=== PATIENT | female | born 1990 | race Caucasian/White ===

== ENCOUNTER 2018-05-26 11:17 | Emergency (ER) | payer OTHER ==
[2018-05-26 12:22] LABS: BASO % 0.2 % (0.0-1.0); EOS # 0.1 10^3/uL (0.0-0.50); EOS % 0.7 % (0.0-3.0); HEMATOCRIT 34.3 % (36.0-47.0); HEMOGLOBIN 12.2 g/dl (12.0-15.5); IMMATURE GRANULOCYTE % 0.5 % (0-3.0); LYMPH # 1.9 10^3/uL (1.5-6.5); LYMPH % 11.9 % (24.0-44.0); MEAN CORPUSCULAR HEMOGLOBIN 31.8 pg (27.0-33.0); MEAN CORPUSCULAR HGB CONC 35.6 g/dl (32.0-36.5); MEAN CORPUSCULAR VOLUME 89.3 fl (80.0-96.0); MONO # 0.9 10^3/uL (0.0-0.8); MONO % 5.5 % (0.0-5.0); NEUTROPHILS # 12.8 10^3/uL (1.8-7.7); NEUTROPHILS % 81.2 % (36.0-66.0); PLATELET COUNT, AUTOMATED 173 10^3/uL (150-450); RED BLOOD COUNT 3.84 10^6/uL (4.00-5.40); RED CELL DISTRIBUTION WIDTH 13.1 % (11.5-14.5); WHITE BLOOD COUNT 15.7 10^3/uL (4.0-10.0)
[2018-05-26 12:48] LABS: LACTIC ACID SEPSIS PROTOCOL 0.5 MMOL/L (0.4-2.0)
[2018-05-26 12:51] LABS: ALBUMIN 3.1 GM/DL (3.2-5.2); ALBUMIN/GLOBULIN RATIO 0.94 (1.00-1.93); ALKALINE PHOSPHATASE 57 U/L (45-117); ALT/SGPT 10 U/L (12-78); ANION GAP 9 MEQ/L (8-16); AST/SGOT 9 U/L (7-37); BILIRUBIN,DIRECT < 0.1 MG/DL (0.0-0.2); BILIRUBIN,TOTAL 0.1 MG/DL (0.2-1.0); BLOOD UREA NITROGEN 7 MG/DL (7-18); C REACTIVE PROTEIN QUANTITATIV 4.65 MG/DL (0.00-0.30); CALCIUM LEVEL 8.2 MG/DL (8.5-10.1); CARBON DIOXIDE LEVEL 23 MEQ/L (21-32); CHLORIDE LEVEL 106 MEQ/L (98-107); CREATININE FOR GFR 0.46 MG/DL (0.55-1.30); GLOMERULAR FILTRATION RATE > 60.0 (>60); GLUCOSE, FASTING 65 MG/DL (70-100); POTASSIUM SERUM 3.8 MEQ/L (3.5-5.1); SODIUM LEVEL 138 MEQ/L (136-145); TOTAL PROTEIN 6.4 GM/DL (6.4-8.2)
[2018-05-26] MEDS: MORPHINE 4 MG/ML 1ML VIAL/SYRINGE (J2270) IV (12:55)
[2018-05-26 13:00] LABS: ERYTHROCYTE SEDIMENTATION RATE 26 mm/hr (0-20)
[2018-05-26] MEDS ORDERED: ISOVUE-370 76% 100ML VIAL (Q9967) As Ordered (13:50)
[2018-05-26] MEDS: CLINDAMYCIN 600 MG in APPROPRIATE DILUENT 1 EA IV (14:30)
== END 2018-05-26 15:30 | disposition home or self-care (01) ==
LOC: M ED 11:17
DX: O99.89 Other specified diseases and conditions complicating pregnancy, childbirth and the puerperium (principal); J34.1 Cyst and mucocele of nose and nasal sinus; Z3A.20 20 weeks gestation of pregnancy
CPT/HCPCS: J2270

== ENCOUNTER 2018-05-29 06:37 | Emergency (ER) | payer OTHER ==
[2018-05-29] MEDS: NS 1,000 ML IV (07:43)
[2018-05-29] MEDS: MORPHINE 2 MG/ML 1ML SYRINGE (J2270) IV ×2 (07:46→08:36)
[2018-05-29 07:57] LABS: HEMATOCRIT 35.5 % (36.0-47.0); HEMOGLOBIN 12.4 g/dl (12.0-15.5); MEAN CORPUSCULAR HEMOGLOBIN 31.4 pg (27.0-33.0); MEAN CORPUSCULAR HGB CONC 34.9 g/dl (32.0-36.5); MEAN CORPUSCULAR VOLUME 89.9 fl (80.0-96.0); PLATELET COUNT, AUTOMATED 190 10^3/uL (150-450); RED BLOOD COUNT 3.95 10^6/uL (4.00-5.40); RED CELL DISTRIBUTION WIDTH 12.7 % (11.5-14.5); WHITE BLOOD COUNT 11.8 10^3/uL (4.0-10.0)
[2018-05-29 08:16] LABS: ANION GAP 8 MEQ/L (8-16); BLOOD UREA NITROGEN 6 MG/DL (7-18); CALCIUM LEVEL 8.9 MG/DL (8.5-10.1); CARBON DIOXIDE LEVEL 23 MEQ/L (21-32); CHLORIDE LEVEL 105 MEQ/L (98-107); GLOMERULAR FILTRATION RATE > 60.0 (>60); GLUCOSE, FASTING 85 MG/DL (70-100); SODIUM LEVEL 136 MEQ/L (136-145)
[2018-05-29 08:19] LABS: LACTIC ACID SEPSIS PROTOCOL 0.5 MMOL/L (0.4-2.0)
[2018-05-29] MEDS: METOCLOPRAMIDE INJ 10MG/2ML VIAL (J2765) IV (08:25)
== END 2018-05-29 09:07 | disposition home or self-care (01) ==
LOC: M ED 06:37
DX: O99.89 Other specified diseases and conditions complicating pregnancy, childbirth and the puerperium (principal); K08.89 Other specified disorders of teeth and supporting structures; J34.1 Cyst and mucocele of nose and nasal sinus; Z3A.21 21 weeks gestation of pregnancy
CPT/HCPCS: J2765

== ENCOUNTER → 2018-06-06 | Outpatient (CLI) | payer OTHER ==
[~2018-06-06] MED LIST: ACET325T; AMOX500T2; CLINDAMYCIN; ONDA4TAB5; OXYCODONE-ACET; PERC5TAB12 PO
[2018-06-06 18:51] LABS: RUBELLA IgG QUALITATIVE IMMUNE (IMMUNE)
[2018-06-06 21:31] LABS: CHLAMYDIA DNA AMPLIFICATION NEGATIVE (NEGATIVE); GC DNA AMPLIFICATION NEGATIVE (NEGATIVE)
== END ==
LOC: M SMT 13:59
PROVIDERS: ATTEND Specialist
DX: Z36.89 Encounter for other specified antenatal screening (principal)

== ENCOUNTER 2018-08-16 19:23 | Outpatient (CLI) | payer OTHER ==
[~2018-08-16] VITALS: Ht 154.9 cm; Wt 87.7 kg
[2018-08-16 19:46] VITALS: BP 130/78
[2018-08-16] MEDS ORDERED: PRENTAB9 PO (20:22)
[2018-08-16] MEDS ORDERED: MAPA500T2 PO (20:22)
[2018-08-16] MEDS ORDERED: PERCOCET 5MG/325MG TAB PO ONE (21:00)
[2018-08-16] MEDS ORDERED: ONDANSETRON 4 MG TAB (S0181) PO ONE (21:00)
[2018-08-16 21:26] LABS: AMPHETAMINES URINE REFLEX NEGATIVE (NEGATIVE); BARBITURATES URINE REFLEX NEGATIVE (NEGATIVE); BENZODIAZEPINES URINE REFLEX NEGATIVE (NEGATIVE); CANNABINOIDS URINE REFLEX NEGATIVE (NEGATIVE); COCAINE METABOLITE URINE REFLE NEGATIVE (NEGATIVE); METHADONE URINE REFLEX NEGATIVE (NEGATIVE); OPIATES URINE REFLEX NEGATIVE (NEGATIVE); PHENCYCLIDINE URINE REFLEX NEGATIVE (NEGATIVE)
--- NOTE | 2018-08-17 03:09 | NUR ---
L&D Triage Note 27yo . 32+3 weeks EGA. Receives PN care in [place]. Presents with chief complaint of dental pain. Scheduled to see dentist tomorrow morning. States dentist will not prescribe pain medication. Tylenol has been ineffective. Pain is causing n/v. Pt also complains of diarrhea. VSS, normotensive, afebrile Abd: soft,nt,nd Ext: no c/c/e HEENT: no e/o dental/oral abscess. No neck edema/induration. EFM: Reactive, moderate variability, no decels. [place]: no ctxs A/P: 27yo at 32+3 weeks. Dental pain. -Zofran and Percocet ordered -Limited Rx for Percocet entered. -Pt advised to keep dental appointment. Deandra Constantino DO
[2018-08-17] MEDS ORDERED: PERCOCET PO (03:10)
== END 2018-08-16 21:39 | disposition home or self-care (01) ==
LOC: M LDO 19:23
PROVIDERS: ATTEND Obstetrics & Gynecology
DX: O99.63 Diseases of the digestive system complicating the puerperium (principal); K08.89 Other specified disorders of teeth and supporting structures; O21.2 Late vomiting of pregnancy; Z3A.32 32 weeks gestation of pregnancy

== ENCOUNTER → 2018-10-10 | Outpatient (REF) | payer OTHER ==
[~2018-10-10] MED LIST changes: +MAPA500T2 PO; +PERCOCET PO; +PRENTAB9 PO
== END ==
LOC: M LAB LCGH 11:08
PROVIDERS: ATTEND Family Medicine
DX: Z39.2 Encounter for routine postpartum follow-up (principal)

== ENCOUNTER 2019-12-24 09:54 | Emergency (ER) | payer OTHER ==
[~2019-12-24] VITALS: Ht 154.9 cm; Wt 76.1 kg
[~2019-12-24 09:54] MED LIST changes: +ONDA-83; -ONDA4TAB5
[2019-12-24 10:27] LABS: BASO % 0.5 % (0.0-1.0); EOS # 0.2 10^3/uL (0.0-0.5); EOS % 3.4 % (0.0-3.0); HEMATOCRIT 40.6 % (36.0-47.0); HEMOGLOBIN 13.8 g/dl (12.0-15.5); LYMPH # 1.3 10^3/uL (1.5-5.0); LYMPH % 21.8 % (24.0-44.0); MEAN CORPUSCULAR HEMOGLOBIN 29.2 pg (27.0-33.0); MEAN CORPUSCULAR VOLUME 85.8 fl (80.0-96.0); MONO # 0.4 10^3/uL (0.0-0.8); NEUTROPHILS # 3.9 10^3/uL (1.5-8.5); PLATELET COUNT, AUTOMATED 177 10^3/uL (150-450); RED BLOOD COUNT 4.73 10^6/uL (4.00-5.40); WHITE BLOOD COUNT 5.9 10^3/uL (4.0-10.0)
[2019-12-24] MEDS ORDERED: KETOROLAC 30 MG/ML 1ML VIAL IV ONE (11:00)
[2019-12-24 11:13] LABS: INR 1.14; PARTIAL THROMBOPLASTIN TIME 27.4 SECONDS (25.0-38.4); PROTHROMBIN TIME 14.3 SECONDS (11.8-14.0)
[2019-12-24 11:39] LABS: ALBUMIN 3.8 GM/DL (3.2-5.2); BILIRUBIN,DIRECT 0.1 MG/DL (0.0-0.2); BILIRUBIN,TOTAL 0.3 MG/DL (0.2-1.0); TOTAL PROTEIN 6.6 GM/DL (6.4-8.2)
--- NOTE | 2019-12-24 11:54 | REP ---
Clinical: Right pelvic pain. Technique: Transabdominal pelvic ultrasound followed by transvaginal examination for better evaluation of the endometrium and adnexa with color Doppler evaluation of the ovaries. Findings: Bladder is under distended. Normal anteverted uterus measures 8.6 x 4.1 x 5.7 cm. Endometrial complex measures 5.7 mm thickness. No uterine or endometrial abnormalities noted. Bilateral ovaries are normal in appearance and vascularity. Right ovary measures 4.6 x 2.5 x 2.4 cm (RI 0.53). Left ovary measures 4.0 x 2.9 x 2.8 cm (RI 0.58). No pelvic fluid or adnexal mass lesion. Impression: Normal pelvic ultrasound. Electronically Signed by Ángel Negro MD 12/24/2019 11:46 A
[2019-12-24] MEDS ORDERED: ONDANSETRON 4MG/2ML VIAL IV ONE (12:15)
[2019-12-24 13:38] LABS: CHLAMYDIA DNA AMPLIFICATION NEGATIVE (NEGATIVE); GC DNA AMPLIFICATION NEGATIVE (NEGATIVE)
[2019-12-24] MEDS ORDERED: IBUP80TA PO (13:40)
[2019-12-24 14:02] VITALS: BP 110/76
== END 2019-12-24 14:03 | disposition home or self-care (01) ==
LOC: M ED 09:54
DX: N93.9 Abnormal uterine and vaginal bleeding, unspecified (principal); R10.2 Pelvic and perineal pain; N80.9 Endometriosis, unspecified; N83.209 Unspecified ovarian cyst, unspecified side; F17.200 Nicotine dependence, unspecified, uncomplicated; Z87.59 Personal history of other complications of pregnancy, childbirth and the puerperium
CPT/HCPCS: 36415; 76856; 80047; 80076; 81001; 82150; 83690; 84702; 85025; 85610; 85730; 87210; 87661; 96374; 96375; 99284; J1885; J2405

== ENCOUNTER 2023-04-16 12:17 | Emergency (ER) | payer OTHER ==
[~2023-04-16] VITALS: Ht 157.5 cm; Wt 68.8 kg
[~2023-04-16 12:17] MED LIST changes: +IBUP80TA PO
[2023-04-16] MEDS ORDERED: IBUPROFEN 800 MG TAB PO ONE (13:50)
[2023-04-16 15:00] VITALS: BP 124/80; TEMP 97.8; O2SAT 100
[2023-04-16] MEDS ORDERED: DOXY-443 PO (15:06)
== END 2023-04-16 15:21 | disposition home or self-care (01) ==
LOC: M ED 12:17
DX: L03.115 Cellulitis of right lower limb (principal); N80.9 Endometriosis, unspecified; Z87.42 Personal history of other diseases of the female genital tract

== ENCOUNTER → 2025-02-16 | Outpatient (CLI) | payer OTHER, SELFPAY ==
[~2025-02-16] MED LIST changes: +DOXY-441 PO
== END ==
LOC: M LAB 12:13
PROVIDERS: ATTEND Nurse Practitioner Family
DX: Z11.1 Encounter for screening for respiratory tuberculosis (principal)

== ENCOUNTER 2025-03-30 22:07 | Emergency (ER) | payer SELFPAY ==
[~2025-03-30] VITALS: Ht 157.5 cm; Wt 86.0 kg
[2025-03-31 00:14] LABS: BASO # 0.1 10^3/uL (0.0-0.2); BASO % 0.4 % (0.0-1.0); EOS # 0.5 10^3/uL (0.0-0.5); EOS % 3.3 % (0.0-3.0); LYMPH # 2.3 10^3/uL (1.5-5.0); LYMPH % 16.3 % (24.0-44.0); MONO # 0.9 10^3/uL (0.0-0.8); MONO % 6.2 % (2.0-8.0); NEUTROPHILS # 10.4 10^3/uL (1.5-8.5); NEUTROPHILS % 73.3 % (36.0-66.0); PLATELET COUNT, AUTOMATED 320 10^3/uL (150-450)
[2025-03-31 00:23] LABS: ERYTHROCYTE SEDIMENTATION RATE 29 mm/hr (0-20)
[2025-03-31 00:33] LABS: C REACTIVE PROTEIN QUANTITATIV 0.97 MG/DL (<1.0); CALCIUM LEVEL 8.8 MG/DL (8.5-10.1); CARBON DIOXIDE LEVEL 28 MMOL/L (20-31); CHLORIDE LEVEL 104 MMOL/L (98-107); CREATININE FOR GFR 0.64 MG/DL (0.55-1.30); GLOMERULAR FILTRATION RATE > 90.0 (>60); POTASSIUM SERUM 4.2 MMOL/L (3.5-5.1); SODIUM LEVEL 141 MMOL/L (136-145)
[2025-03-31] MEDS ORDERED: ISOVUE-370 76% 100 ML VIAL As Ordered ONE (07:40)
[2025-03-31] MEDS ORDERED: CEPH500C PO (10:01)
[2025-03-31] MEDS: cefTRIAXone SOD 2 GM in DEXTROSE 5% (D5W) ADV/MINI-BAG 50 ML IV ONE (10:37)
[2025-03-31 11:00] VITALS: BP 123/91; TEMP 98.1; O2SAT 98
== END 2025-03-31 11:40 | disposition home or self-care (01) ==
LOC: M ED 22:07 → EEVIPCON 22:07 → M ED 03-31 11:40
DX: L03.211 Cellulitis of face (principal); Z79.2 Long term (current) use of antibiotics; Z79.1 Long term (current) use of non-steroidal anti-inflammatories (NSAID)
CPT/HCPCS: 70487; 80048; 83605; 85025; 85652; 86140; 87040; 87077; 87154; 87186; 87641; 96365; 96375; 99284; J0696; J1100; Q9967

== ENCOUNTER 2025-04-21 14:20 | Emergency (ER) | payer SELFPAY ==
[~2025-04-21] VITALS: Ht 157.5 cm; Wt 85.6 kg
[~2025-04-21 14:20] MED LIST changes: +CEPH500C PO
[2025-04-21 14:30] VITALS: BP 134/90; TEMP 97.3; O2SAT 100
[2025-04-21 15:20] LABS: KETONE, URINE AUTO RFX NEGATIVE (NEGATIVE); MUCUS, URINE RFX LARGE (NEGATIVE); NITRITE, URINE AUTO RFX POSITIVE (NEGATIVE); RBC, URINE AUTO RFX 65 /HPF (0-3); SQUAM EPITHELIAL CELL UR AURFX 9 /HPF (0-6)
[2025-04-21 15:21] LABS: LEUKOCYTE ESTERASE UR AUTO RFX 2+ (NEGATIVE); WBC, URINE AUTO RFX 58 /HPF (0-3)
[2025-04-21] MEDS ORDERED: PYRI1TAB5 PO (15:33)
[2025-04-21] MEDS ORDERED: NITR100C3 PO (15:33)
== END 2025-04-21 15:37 | disposition home or self-care (01) ==
LOC: M ED 14:20
DX: N39.0 Urinary tract infection, site not specified (principal); F17.200 Nicotine dependence, unspecified, uncomplicated; Z79.2 Long term (current) use of antibiotics; Z79.899 Other long term (current) drug therapy

== ENCOUNTER 2025-04-25 17:53 | Emergency (ER) | payer MEDICAID, OTHER, SELFPAY ==
[~2025-04-25] VITALS: Ht 157.5 cm; Wt 85.7 kg
[~2025-04-25 17:53] MED LIST changes: +NITR100C3 PO; +PYRI1TAB5 PO
[2025-04-25 19:21] LABS: BASO # 0.0 10^3/uL (0.0-0.2); BASO % 0.3 % (0.0-1.0); EOS # 0.0 10^3/uL (0.0-0.5); EOS % 0.0 % (0.0-3.0); LYMPH # 0.5 10^3/uL (1.5-5.0); LYMPH % 6.1 % (24.0-44.0); MONO # 0.3 10^3/uL (0.0-0.8); MONO % 3.7 % (2.0-8.0); NEUTROPHILS # 7.1 10^3/uL (1.5-8.5); NEUTROPHILS % 89.5 % (36.0-66.0); PLATELET COUNT, AUTOMATED 192 10^3/uL (150-450)
[2025-04-25 19:29] LABS: KETONE, URINE AUTO RFX NEGATIVE (NEGATIVE); MUCUS, URINE RFX LARGE (NEGATIVE); RBC, URINE AUTO RFX 9 /HPF (0-3); SQUAM EPITHELIAL CELL UR AURFX 8 /HPF (0-6)
[2025-04-25 19:30] LABS: LEUKOCYTE ESTERASE UR AUTO RFX 2+ (NEGATIVE); NITRITE, URINE AUTO RFX POSITIVE (NEGATIVE); WBC, URINE AUTO RFX 76 /HPF (0-3)
[2025-04-25 19:41] LABS: HCG, SERUM QUALITATIVE NEGATIVE (NEGATIVE)
[2025-04-25 19:43] LABS: ALT/SGPT 88 U/L (7.0-40); AST/SGOT 82 U/L (<34); CALCIUM LEVEL 8.9 MG/DL (8.5-10.1); CARBON DIOXIDE LEVEL 27 MMOL/L (20-31); CHLORIDE LEVEL 102 MMOL/L (98-107); CREATININE FOR GFR 0.85 MG/DL (0.55-1.30); GLOMERULAR FILTRATION RATE > 90.0 (>60); POTASSIUM SERUM 3.3 MMOL/L (3.5-5.1); SODIUM LEVEL 138 MMOL/L (136-145)
[2025-04-25] MEDS ORDERED: ACETAMINOPHEN 500 MG TAB As Ordered ONE (21:36)
[2025-04-25] MEDS: ACETAMINOPHEN 500 MG TAB PO ONE (21:43)
[2025-04-25] MEDS: NS (Normal Saline) 0.9% 1,000 ML IV ONE (22:12)
[2025-04-25] MEDS: IBUPROFEN 800 MG TAB PO ONE (22:13)
[2025-04-25] MEDS ORDERED: AMOX875T2 PO (22:17)
[2025-04-25] MEDS: cefTRIAXone SOD 2 GM in DEXTROSE 5% (D5W) ADV/MINI-BAG 50 ML IV ONE (22:22)
[2025-04-25] MEDS: POTASSIUM CHLORIDE 10MEQ SR TABLET PO ONE (22:37)
[2025-04-25 23:16] LABS: HEPATITIS C VIRUS ABY INDEX < 0.02 INDEX (<0.8)
[2025-04-26 00:22] VITALS: BP 104/65; TEMP 98.4; O2SAT 98
== END 2025-04-26 00:25 | disposition home or self-care (01) ==
LOC: M ED 17:53
DX: N10 Acute pyelonephritis (principal); N39.0 Urinary tract infection, site not specified; Z79.899 Other long term (current) drug therapy; Z79.2 Long term (current) use of antibiotics
CPT/HCPCS: 80048; 80074; 80076; 81001; 83605; 83690; 84703; 85025; 87040; 87088; 87186; 96365; 96366; 99285; J0696